=== PATIENT | female | born 1945 | race Caucasian/White ===

== ENCOUNTER → 2019-07-14 | Outpatient (CLI) | payer MEDICARE, OTHER | END | disposition home or self-care (01) | LOC: CVU 08:47 | PROVIDERS: ATTEND Student in an Organized Health Care Education/Training Program | DX: I83.893 Varicose veins of bilateral lower extremities with other complications (principal); M79.89 Other specified soft tissue disorders; R56.00 Simple febrile convulsions | CPT/HCPCS: 93970 ==

== ENCOUNTER → 2020-03-28 | Outpatient (CLI) | payer MEDICARE, OTHER ==
[~2020-03-28] MED LIST: ASPI81TA45 PO; CARB15DR59 EACHEYE; DICL100G19 TP; ESTR0.6246 PO; GLUC-111 PO; KELP PO; LEVO175T5 PO; MECO5000 PO; MONT10TA11 PO; MULT-658 PO; NAPH15DR EACHEYE; PYRI200T5 PO
[2020-03-28 09:06] LABS: BASOPHILS # (AUTO) 0.05 x10^3/uL (0-0.1); BASOPHILS % (AUTO) 1 % (0-1); EOSINOPHILS # (AUTO) 0.21 x10^3/uL (0-0.4); EOSINOPHILS % (AUTO) 2 % (1-7); LYMPHOCYTES % (AUTO) 36 % (22-44); MD NO; MEAN CORPUSCULAR HEMOGLOBIN 30.4 pg (27.0-34.8); MEAN CORPUSCULAR HGB CONC 33.2 g/dL (32.4-35.8); MEAN CORPUSCULAR VOLUME 91.6 fL (80-100); MEAN PLATELET VOLUME 9.1 fL (7.4-10.4); MONOCYTES # (AUTO) 0.79 x10^3/uL (0.2-0.8); MONOCYTES % (AUTO) 9 % (2-9); NEUTROPHILS # (AUTO) 4.93 x10^3/uL (1.8-6.8); NEUTROPHILS % (AUTO) 53 % (42-75); PLATELET COUNT 237 x10^3/uL (130-400); RED BLOOD COUNT 4.52 x10^6/uL (3.82-5.3); RED CELL DISTRIBUTION WIDTH 13.1 % (9.6-15.2)
[2020-03-28 09:21] LABS: ANION GAP 4 mmol/L (5-15); CALCIUM 9.4 mg/dL (8.5-10.1); CHLORIDE 113 mmol/L (98-107); CREATININE 0.86 mg/dL (0.55-1.02)
== END | disposition home or self-care (01) ==
LOC: STAR 07:44
PROVIDERS: ATTEND Surgery
DX: Z01.818 Encounter for other preprocedural examination (principal); I83.893 Varicose veins of bilateral lower extremities with other complications; I87.8 Other specified disorders of veins
CPT/HCPCS: 36415; 80048; 85025; 93005

== ENCOUNTER 2020-04-01 16:30 | Day surgery (SDC) | payer MEDICARE, OTHER ==
[~2020-04-01] VITALS: Ht 160 cm; Wt 104.8 kg
[~2020-04-01 16:30] MED LIST changes: +HEPARIN 1,000 UNITS/ML, 10ML ONE; +LIDOCAINE 1%-EPI 1:100K, 20ML ONE
[2020-04-01] MEDS ORDERED: LACTATED RINGERS 1,000 ML IV SCH (16:44)
[2020-04-01 16:45] VITALS: BP 138/64
[2020-04-01] MEDS ORDERED: TYLEN (16:54)
[2020-04-01] MEDS ORDERED: CHLORHEXIDINE 15 ML UDC MM ONE (17:00)
[2020-04-01] MEDS ORDERED: FENTANYL PF 250 MCG/5ML ONE (18:08)
[2020-04-01] MEDS ORDERED: MIDAZOLAM 1 MG/ML, 2ML ONE (18:08)
[2020-04-01] MEDS ORDERED: DEXAMETHASONE 4 MG/ML, 1ML ONE (18:32)
[2020-04-01] MEDS ORDERED: SUGAMMADEX 200 MG/2 ML IVPush ONE (18:32)
[2020-04-01] MEDS ORDERED: ONDANSETRON 2MG/ML, 2ML ONE (18:32)
[2020-04-01] MEDS ORDERED: CEFAZOLIN 1,000 MG ONE (18:32)
[2020-04-01] MEDS ORDERED: ALBUTEROL SULFATE 2.5 MG/3 ML NPPB PRN (19:00)
[2020-04-01] MEDS ORDERED: DIPHENHYDRAMINE 50 MG/ML, 1ML IVPush PRN (19:00)
[2020-04-01] MEDS ORDERED: MIDAZOLAM 1 MG/ML, 2ML IV PRN (19:00)
[2020-04-01] MEDS ORDERED: ACETAMINOPHEN 325 MG TABLET PO PRN (19:00)
[2020-04-01] MEDS ORDERED: PROMETHAZINE 12.5 MG SUPP PR PRN (19:00)
[2020-04-01] MEDS ORDERED: hydrALAzine 20 MG/ML, 1ML IV PRN (19:00)
[2020-04-01] MEDS ORDERED: ONDANSETRON 2MG/ML, 2ML IVPush PRN ×2 (19:00→22:00)
[2020-04-01] MEDS ORDERED: HYDROmorphone 1 MG/ML, 1ML INJ IVPush PRN (19:00)
[2020-04-01] MEDS ORDERED: LABETALOL 5MG/ML, 20ML IV PRN (19:00)
[2020-04-01] MEDS ORDERED: MEPERIDINE/PF 25MG/0.5ML IVPush PRN (19:00)
[2020-04-01] MEDS ORDERED: FENTANYL PF 100 MCG/2ML IV PRN (19:00)
[2020-04-01] MEDS ORDERED: OXYcodone 5 MG/5 ML ORAL.SOL UDC PO PRN (19:00)
[2020-04-01] MEDS ORDERED: DIAZEPAM 5 MG/ML, 2ML IVPush PRN (19:00)
[2020-04-01] MEDS ORDERED: PROMETHAZINE 25 MG/ML, 1ML IVPush PRN (19:00)
[2020-04-01] MEDS ORDERED: EPHEDRINE 50 MG/ML, 1ML IVPush PRN (19:00)
[2020-04-01] MEDS ORDERED: ROCURONIUM 10MG/ML,5ML ONE (19:35)
[2020-04-01] MEDS ORDERED: SUCCINYLCHOLINE 20 MG/ML, 10ML ONE (19:35)
[2020-04-01] MEDS ORDERED: PROPOFOL 10 MG/ML, 20ML ONE (19:35)
[2020-04-01] MEDS ORDERED: MEPERIDINE/PF 25MG/ML,1ML ONE (20:18)
[2020-04-01] MEDS ORDERED: HYDR-3652 PO (21:43)
[2020-04-01] MEDS ORDERED: MORPHINE SULFATE 4 MG/ML, 1ML IVPush PRN (22:00)
[2020-04-01] MEDS ORDERED: HYDROcodone/APAP 5/325 TABLET PO PRN (22:00)
== END 2020-04-01 22:30 | disposition home or self-care (01) ==
LOC: OR 16:30 → 4NE 21:00 → OR 22:30
PROVIDERS: ATTEND Surgery
DX: I83.813 Varicose veins of bilateral lower extremities with pain (principal); Z11.59 Encounter for screening for other viral diseases; I83.12 Varicose veins of left lower extremity with inflammation; I83.11 Varicose veins of right lower extremity with inflammation; I83.893 Varicose veins of bilateral lower extremities with other complications; I87.8 Other specified disorders of veins; E89.0 Postprocedural hypothyroidism; E66.01 Morbid (severe) obesity due to excess calories; Z68.41 Body mass index [BMI] 40.0-44.9, adult; Z88.0 Allergy status to penicillin; Z90.722 Acquired absence of ovaries, bilateral; Z90.79 Acquired absence of other genital organ(s); Z90.710 Acquired absence of both cervix and uterus; Z98.890 Other specified postprocedural states
CPT/HCPCS: 36415; 36475; 37765; 87635; C1888; C1894; J0330; J0690; J1100; J2175; J2250; J2405; J2704; J3010; J3490; J7120; G0378; J1644

== ENCOUNTER → 2020-04-04 | Outpatient (CLI) | payer MEDICARE, OTHER ==
[~2020-04-04] MED LIST changes: -HEPARIN 1,000 UNITS/ML, 10ML ONE; +HYDR-3652 PO; -LIDOCAINE 1%-EPI 1:100K, 20ML ONE; +TYLEN
== END | disposition home or self-care (01) ==
LOC: CVU 12:34
PROVIDERS: ATTEND Surgery
DX: I86.8 Varicose veins of other specified sites (principal); I87.2 Venous insufficiency (chronic) (peripheral)
CPT/HCPCS: 93970